=== PATIENT | male | born 1960 | race African-American/Black ===

== ENCOUNTER 2016-07-24 11:58 | Emergency (ER) | payer OTHER ==
[~2016-07-24] VITALS: Ht 172.7 cm; Wt 95.0 kg
[~2016-07-24 11:58] MED LIST: ASPIR 8181 M1 PO; BACTRIM,SEPT1 TABLET PO; DONNATAL1 TABLET PO; FLEXERIL10 MG PO; HYDROCHLOROTH12.5 M3 PO; HYDROCHLOROTHIA25 MG PO; HYDROCHLOROTHIAZIDE; HYDROCODON-ACE1 EAC7 PO; INDOCIN25 MG PO; KEFLEX500 MG PO; LISINOPRIL; LORTAB 5-325 M1 EACH PO; METFORMIN; METFORMIN HCL500 MG PO; MOBIC7.5 MG PO; MOTRIN600 MG PO; NAPROSYN500 MG PO; NAPROXEN500 MG PO; NEXIUM; NEXIUM40 MG PO; NORCO 7.5/321 TABLET PO; PRINIVIL10 MG PO; VALIUM5 MG PO; VIBRAMYCIN100 MG PO; VICODIN 5-3001 EACH PO; VITAMIN D22000 UNIT PO; ZOCOR; ZOCOR10 MG PO
[2016-07-24] MEDS ORDERED: MOTRIN800 MG PO (14:37)
[2016-07-24 15:04] VITALS: BP 121/80
== END 2016-07-24 15:10 | disposition home or self-care (01) ==
LOC: EME 11:58
DX: M25.511 Pain in right shoulder (principal)
CPT/HCPCS: 73030; 73200; 99281; 99284; J1885

== ENCOUNTER 2017-06-23 17:23 | Emergency (ER) | payer OTHER ==
[~2017-06-23] VITALS: Ht 172.7 cm; Wt 95.6 kg
[~2017-06-23 17:23] MED LIST changes: +MOTRIN800 MG PO
[2017-06-23] MEDS ORDERED: VENTOLIN HFA18 GM IH (19:07)
[2017-06-23] MEDS ORDERED: TESSALON200 MG PO (19:07)
[2017-06-23 19:47] VITALS: BP 168/86
== END 2017-06-23 19:48 | disposition home or self-care (01) ==
LOC: EME 17:23
PROVIDERS: Nurse Practitioner Family
DX: J02.8 Acute pharyngitis due to other specified organisms (principal); B97.89 Other viral agents as the cause of diseases classified elsewhere; E11.9 Type 2 diabetes mellitus without complications; Z79.84 Long term (current) use of oral hypoglycemic drugs; E78.5 Hyperlipidemia, unspecified; I10 Essential (primary) hypertension
CPT/HCPCS: 71046; 87502; 87651 90; 99281; 99284

== ENCOUNTER 2017-09-26 16:43 | Emergency (ER) | payer OTHER ==
[~2017-09-26] VITALS: Ht 172.7 cm; Wt 93.5 kg
[~2017-09-26 16:43] MED LIST changes: +TESSALON200 MG PO; +VENTOLIN HFA18 GM IH
[2017-09-26 17:34] LABS: BASOPHIL (%) 0.7 % (0-1); BASOPHIL COUNT 0.1 K/uL (0-0.1); EOSINOPHIL (%) 1.2 % (0-5); EOSINOPHIL COUNT 0.1 K/uL (0-0.3); HEMATOCRIT 39.3 % (38.0-50.0); HEMOGLOBIN 13.8 G/DL (12.5-16.6); IMMATURE GRANULOCYTE (%) 0.3 % (0.0-0.7); LYMPHOCYTE (%) 31.4 % (15-42); LYMPHOCYTE COUNT 2.3 K/uL (1.0-2.8); MCH 25.9 PG (29.0-34.0); MCHC 35.1 G/DL (30.0-36.0); MCV 73.7 FL (86-99); MONOCYTE (%) 7.6 % (3-12); MONOCYTE COUNT 0.6 K/uL (0-0.8); NEUTROPHIL (%) 58.8 % (45-76); NEUTROPHIL COUNT 4.4 K/uL (1.8-6.4); PLATELET COUNT 267 K/uL (156-360); RBC DIS.WIDTH-CV 14.8 % (11.8-14.6); RBC DIS.WIDTH-SD 39.3 % (39-53); RED BLOOD COUNT 5.33 M/uL (4.00-5.50); WHITE BLOOD COUNT 7.5 K/uL (4.1-10.2)
[2017-09-26 17:36] LABS: CHLORIDE 102 mEq/L (99-109); POTASSIUM 4.2 mEq/L (3.7-5.4); SODIUM 140 mEq/L (136-147)
[2017-09-26 17:38] LABS: GLUCOSE 101 mg/dL (70-99)
[2017-09-26 17:42] LABS: CREATININE 1.1 mg/dL (0.6-1.3); GFR ESTIMATE (CALCULATED) > 59 mL/min/ (58.99-99999)
[2017-09-26 17:43] LABS: UREA NITROGEN (BUN) 12 mg/dL (9-23)
[2017-09-26 17:49] LABS: ERTH.SED.RATE 15 MM/HR (0-20)
[2017-09-26 18:29] LABS: C-REACTIVE PROTEIN 8.4 MG/L (0-10)
[2017-09-26] MEDS ORDERED: INDOCIN50 MG PO (18:48)
[2017-09-26 19:37] VITALS: BP 177/99
== END 2017-09-26 19:39 | disposition home or self-care (01) ==
LOC: EME 16:43
DX: M70.42 Prepatellar bursitis, left knee (principal); M76.52 Patellar tendinitis, left knee
CPT/HCPCS: 73564; 80048; 85025; 85651; 86140; 99281; 99284